=== PATIENT | male | born 1955 | race Caucasian/White ===

== ENCOUNTER 2019-11-14 10:54 | Emergency (ER) | payer BC, OTHER ==
[~2019-11-14] VITALS: Ht 182.9 cm; Wt 96.0 kg
[~2019-11-14 10:54] MED LIST: ALBU8.5H8 INH; FEXO1TAB29 PO; [UNRECOGNIZED DRUG - REMARK]
[2019-11-14] MEDS ORDERED: ASPI325T17 PO (11:24)
--- NOTE | 2019-11-14 11:24 | NUR ---
WORK COMP INJURY. PT C/O PAIN TO RT SHOULDER: PAIN W/ LIFTING ARM LATERALLY. PAIN TO RT HIP: LIMITED ROM, PAIN W/ WEIGHTBEARING. PAIN DISTAL TO RT KNEE. SKIN INTACT, NO DISCOLORATION NOTED AT THIS TIME. C/O RT NECK STIFFNESS; ABLE TO MOVE HEAD W/OUT DIFFICULTY. RESP EVEN & UNLABORED, SPEECH CLEAR, SKIN WNL. 3 SMALL BANDAIDS ON RT HAND; STATES HAND CUT BY GLASS LIGHT COVER. PT RT HANDED; + ROM. STATES HE WAS STANDING ON A LADDER, CHANGING LIGHTBULBS, CEILING HEIGHT 9FT.
--- NOTE | 2019-11-14 11:29 | NUR ---
TO XR PER ARIE
[2019-11-14 11:54] LABS: ALBUMIN 4.2 g/dL (3.4-5.0); ANION GAP 11 mmol/L (5-15); CALCIUM 9.5 mg/dL (8.5-10.1); CHLORIDE 105 mmol/L (98-107)
--- NOTE | 2019-11-14 11:58 | NUR ---
PT REPORT TO WON RIDDLE RN. PT CARE TRANSFERRED.
[2019-11-14 11:59] LABS: CREATININE 0.91 mg/dL (0.7-1.3)
[2019-11-14 12:11] LABS: MD YES; MEAN CORPUSCULAR HGB CONC 33.9 g/dL (33.2-36.2); MEAN CORPUSCULAR VOLUME 94.5 fL (81-97); MEAN PLATELET VOLUME 9.1 fL (7.4-10.4); PLATELET COUNT 196 x10^3/uL (130-400); RED BLOOD COUNT 5.45 x10^6/uL (4.38-5.82); RED CELL DISTRIBUTION WIDTH 13.1 % (9.4-14.8)
[2019-11-14 12:15] LABS: <RBC MORPHOLOGY> NORMAL; EOS#(MANUAL) 0.18 x10^3/uL (0.0-0.4); EOS% (MANUAL) 2 % (1-7); LYMPH#(MANUAL) 2.58 x10^3/uL (1-3.4); LYMPHS% (MANUAL) 29 % (22-44); MONOS#(MANUAL) 0.36 x10^3/uL (0.3-2.7); MONOS% (MANUAL) 4 % (2-9); REACTIVE LYMPHS # (MANUAL) 0.18 x10^3/uL (0-0); REACTIVE LYMPHS % (MANUAL) 2 % (0-0); SEG#(MANUAL) 5.61 x10^3/uL (1.8-6.8); SEGS% (MANUAL) 63 % (42-75)
[2019-11-14 12:16] LABS: <PLATELET ESTIMATE> ADEQUATE; LARGE PLATELETS 1+
[2019-11-14 13:14] VITALS: BP 152/92
--- NOTE | 2019-11-14 13:14 | NUR ---
PT SITTING QUIETLY ON GURNEY, WATCHING TV, CALL LIGHT W/IN REACH, SIDE RAILS UP X2; AWAITING HAND XR.
--- NOTE | 2019-11-14 13:15 | NUR ---
PT REQUESTING PAIN MED; ERP WILL BE NOTIFIED.
[2019-11-14] MEDS ORDERED: HYDROcodone/APAP 5/325 TABLET ONE (13:19)
--- NOTE | 2019-11-14 13:21 | NUR ---
NORCO GIVEN PER EMAR
[2019-11-14] MEDS ORDERED: HYDROcodone/APAP 5/325 TABLET PO ONE (13:30)
[2019-11-14] MEDS ORDERED: NEOSPORIN OINT. PKT 1 PACKET ONE ×2 (13:55→13:58)
[2019-11-14] MEDS ORDERED: DIPH,PERTUSS(ACELL),TET VAC/PF 0.5 ML IM-VACC ONE ×2 (13:58→14:00)
--- NOTE | 2019-11-14 14:05 | NUR ---
ULISES ASCENCIO AT FOR WOUND CARE.
--- NOTE | 2019-11-14 14:09 | NUR ---
TDAP GIVEN PER EMAR
--- NOTE | 2019-11-14 14:30 | NUR ---
DISCUSSING DC INSTRUCTIONS W/ PT. PT STATES "I CAN'T STAND ON THIS (RT) LEG". PT FULLY DRESSED AND SITTING ON END OF GURNEY. DR ZHAO CONSULTED; PT MAY BE DC'D W/ CRUTCHES; PT NOTIFIED. PT REFUSED CRUTCHES, STATES HE HAS SOME AT HOME.
== END 2019-11-14 14:49 | disposition home or self-care (01) ==
LOC: ED 12:14
DX: S61.411A Laceration without foreign body of right hand, initial encounter (principal); S20.211A Contusion of right front wall of thorax, initial encounter; S70.01XA Contusion of right hip, initial encounter; S80.11XA Contusion of right lower leg, initial encounter; R51 Headache; E11.65 Type 2 diabetes mellitus with hyperglycemia; W11.XXXA Fall on and from ladder, initial encounter; Y93.89 Activity, other specified; Y92.89 Other specified places as the place of occurrence of the external cause; Y99.0 Civilian activity done for income or pay
CPT/HCPCS: 36415; 70450; 80048; 82040; 85025; 90471; 90715; 99285

== ENCOUNTER → 2021-02-13 | Outpatient (CLI) | payer MEDICARE | END | disposition home or self-care (01) | LOC: LAB 12:52 | PROVIDERS: ATTEND Internal Medicine Cardiovascular Disease | DX: I10 Essential (primary) hypertension (principal); E11.9 Type 2 diabetes mellitus without complications; R07.9 Chest pain, unspecified; R93.1 Abnormal findings on diagnostic imaging of heart and coronary circulation ==